=== PATIENT | female | born 1995 | race African-American/Black ===

== ENCOUNTER 2019-09-15 14:20 | Emergency (ER) | payer MEDICAID ==
[~2019-09-15] VITALS: Ht 170.2 cm; Wt 77.1 kg
[2019-09-15 14:23] VITALS: BP 122/80
--- NOTE | 2019-09-15 14:23 | NUR ---
ED Nurse Note: PT brought in by ra Whitaker from a [employer] [facility] for ALOC. per EMS reports, pt was sleeping in the waiting room and was unable to wake her up. PT currently appears to be lethargic. arrousable to light pain.
--- NOTE | 2019-09-15 14:27 | Emergency Room Report ---
History of Present Illness General Chief Complaint: Altered Level of Consciousness Source: Patient, EMS Present Illness HPI Patient is transported from [employer] with altered level of consciousness. Paramedics found the patient with eyes closed and minimally responding to verbal stimuli however she did respond to sternal rub. She would not answer questions. Accu-Chek in the field was normal. There is no evidence of any head trauma. Here in the emergency department the patient has a gag reflex. In addition she will not answer questions. When asked if she has a headache she minimally nods yes. 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 Nursing Documentation: PMH: Agreed; PSxH: Agreed Nursing Documentation-PMH Past Medical History: No Stated History Review of Systems All Other Systems: limited Physical Exam Vital Signs Date Time Temp Pulse Resp B/P (MAP) Pulse Ox O2 Delivery O2 Flow Rate FiO2 09/15/19 14:15 73 18 112/75 (87) 98 Sp02 EP Interpretation: reviewed, normal General Appearance: non-toxic, lethargic Eyes: bilateral eye PERRL, bilateral eye abnormal EOM - Possible rotatory nystagmus, bilateral eye Scleral Injection ENT: moist mucus membranes - Gag present Neck: other - Will spontaneously when gag tested no apparent bony tenderness Respiratory: normal inspection, chest non-tender Cardiovascular #1: regular rate, rhythm, no edema Cardiovascular #2: 2+ radial (L) Gastrointestinal: non tender, abnormal bowel sounds - Decreased, overweight Musculoskeletal: moves extm spontaneously Neurologic: other - Lethargic, gag present, moves all extremities when gag is tested, reflexes symmetrical but depressed Psychiatric: other - Lethargy Skin: no rash, warm/dry Procedures Critical Care Time Critical Care Time Total Critical Care Time: 30 min bedside evaluation and treatment excludes procedures (EKG). Reason for critical care: Stupor unknown etiology, repeated evaluations Possible complications: hypotension, hypertension, AL, shock, arrhythmias, metabolic acidosis, end organ damage, respiratory failure. Interventions: Assessment of airway, critical evaluation with repeat evaluations and monitoring. Course: Patient presented with stupor. Airway assessed to be stable. Evaluation with CT, chest x-ray and labs. Repeat evaluations. Patient improved with observation. Consultations: nursing staff, EMS Performed by: Dr. Estevez Tolerated well condition = initially critical but improved and able to be discharged. Medical Decision Making Diagnostic Impression: Primary Impression: Altered level of consciousness Additional Impression: Amphetamine abuse ER Course Patient presents with altered level of consciousness. Differential includes drug ingestion including PCP and GHB, electrolyte abnormality, brain bleed was others. Patient evaluated with EKG, chest x-ray CT of the head and labs. Patient will receive IV hydration. Patient placed on a it admin. She is protecting her airway at this time. EKG normal sinus rhythm with normal EKG. labs significant for positive amphetamine 1800. Patient arousable and answers questions still slightly ataxic at the moment. Denies any other drug ingestion. She is complaining about some rib pain but when asked what happened she will not answer. She does not describe the pain either. Patient fully awake and ambulatory. Insists on leaving the department. Discussed findings and the need for outpatient follow-up. No medical emergency at this time and patient stable for outpatient observation and treatment. Laboratory Tests Test 09/15/19 14:15 09/15/19 14:45 09/15/19 15:11 White Blood Count 9.0 K/UL (4.8-10.8) Red Blood Count 4.87 M/UL (4.20-5.40) Hemoglobin 14.0 G/DL (12.0-16.0) Hematocrit 43.5 % (37.0-47.0) Mean Corpuscular Volume 89 FL (80-99) Mean Corpuscular Hemoglobin 28.8 PG (27.0-31.0) Mean Corpuscular Hemoglobin Concent 32.2 G/DL (32.0-36.0) Red Cell Distribution Width 12.2 % (11.6-14.8) Platelet Count 302 K/UL (150-450) Mean Platelet Volume 7.3 FL (6.5-10.1) Neutrophils (%) (Auto) 57.9 % (45.0-75.0) Lymphocytes (%) (Auto) 28.8 % (20.0-45.0) Monocytes (%) (Auto) 10.4 % (1.0-10.0) H Eosinophils (%) (Auto) 0.8 % (0.0-3.0) Basophils (%) (Auto) 2.1 % (0.0-2.0) H Troponin I 0.000 ng/mL (0.000-0.056) Human Chorionic Gonadotropin, Qual Negative (NEGATIVE) Urine Color Pale yellow Urine Appearance Clear Urine pH 5 (4.5-8.0) Urine Specific [place] 1.020 (1.005-1.035) Urine Protein Negative (NEGATIVE) Urine Glucose (UA) Negative (NEGATIVE) Urine Ketones Negative (NEGATIVE) Urine Blood 1+ (NEGATIVE) H Urine Nitrite Negative (NEGATIVE) Urine Bilirubin Negative (NEGATIVE) Urine Urobilinogen Normal MG/DL (0.0-1.0) Urine Leukocyte Esterase Negative (NEGATIVE) Urine RBC 0-2 /HPF (0 - 2) Urine WBC 0 /HPF (0 - 2) Urine Squamous Epithelial Cells Occasional /LPF Urine Bacteria None /HPF (NONE) Urine Opiates Screen Negative (NEGATIVE) Urine Barbiturates Screen Negative (NEGATIVE) Phencyclidine (PCP) Screen Negative (NEGATIVE) Urine Amphetamines Screen Positive (NEGATIVE) H Urine Benzodiazepines Screen Negative (NEGATIVE) Urine Cocaine Screen Negative (NEGATIVE) Urine Marijuana (THC) Screen Negative (NEGATIVE) Sodium Level 137 MMOL/L (136-145) Potassium Level 3.8 MMOL/L (3.5-5.1) Chloride Level 104 MMOL/L (98-107) Carbon Dioxide Level 24 MMOL/L (21-32) Anion Gap 9 mmol/L (5-15) Blood Urea Nitrogen 9 mg/dL (7-18) Creatinine 1.0 MG/DL (0.55-1.30) Estimated Glomerular Filtration Rate > 60 mL/min (>60) Glucose Level 94 MG/DL (74-106) Calcium Level 8.1 MG/DL (8.5-10.1) L Total Bilirubin 0.4 MG/DL (0.2-1.0) Aspartate Amino Transferase (AST) 21 U/L (15-37) Alanine Aminotransferase (ALT) 15 U/L (12-78) Alkaline Phosphatase 56 U/L (46-116) Total Creatine Kinase 143 U/L (26-308) Total Protein 6.8 G/DL (6.4-8.2) Albumin 3.4 G/DL (3.4-5.0) Globulin 3.4 g/dL Albumin/Globulin Ratio 1.0 (1.0-2.7) Thyroid Stimulating Hormone (TSH) 3.021 uiU/mL (0.358-3.740) Salicylates Level 0.8 ug/mL (2.8-20) L Acetaminophen Level < 2 MCG/ML (10-30) L Serum Alcohol < 3 mg/dL EKG Diagnostic Results Rate: normal Rhythm: NSR ST Segments: no acute changes Rhythm Strip Diag. Results EP Interpretation: yes Rhythm: NSR, no PVC's, no ectopy Chest X-Ray Diagnostic Results Chest X-Ray Diagnostic Results : Chest X-Ray Ordered: Yes # of Views/Limited/Complete: 1 View Indication: Other EP Interpretation: Yes Interpretation: no consolidation, no effusion, no pneumothorax Impression: No acute disease Electronically Signed by: Electronically signed by Maynor Estevez MD CT/MRI/US Diagnostic Results CT/MRI/US Diagnostic Results : Imaging Test Ordered: Had Impression No bleeds or edema. vascular calcifications falx Last Vital Signs Date Time Temp Pulse Resp B/P (MAP) Pulse Ox O2 Delivery O2 Flow Rate FiO2 09/15/19 18:28 97.8 80 17 120/80 98 Room Air Status: improved Disposition: HOME, SELF-CARE Condition: Improved Maynor Estevez MD Sep 15, 2019 14:27
--- NOTE | 2019-09-15 14:34 | NUR ---
ED Nurse Note: Collected blood sample and sent to lab.
[2019-09-15 14:36] LABS: BASOPHILS % (AUTO) 2.1 % (0.0-2.0); EOSINOPHILS % (AUTO) 0.8 % (0.0-3.0); HEMATOCRIT 43.5 % (37.0-47.0); LYMPHOCYTES % (AUTO) 28.8 % (20.0-45.0); MEAN CORPUSCULAR VOLUME 89 FL (80-99); MONOCYTES % (AUTO) 10.4 % (1.0-10.0); NEUTROPHILS % (AUTO) 57.9 % (45.0-75.0); PLATELET COUNT 302 K/UL (150-450); RED BLOOD COUNT 4.87 M/UL (4.20-5.40); RED CELL DISTRIBUTION WIDTH 12.2 % (11.6-14.8)
--- NOTE | 2019-09-15 14:38 | NUR ---
ED Nurse Note: pt taken to CT accompanied by surjit via [facility].
--- NOTE | 2019-09-15 14:51 | NUR ---
ED Nurse Note: back form ct
--- NOTE | 2019-09-15 14:56 | NUR ---
ED Nurse Note: urine sample collected.
--- NOTE | 2019-09-15 15:12 | NUR ---
ED Nurse Note: pt seen in bed, still sleeping. arousable to touch and verbal stimuli. still sppears lethargic,
[2019-09-15 15:13] VITALS: BP 113/73
[2019-09-15 15:14] LABS: APPEARANCE,URINE CLEAR; BILIRUBIN, URINE NEGATIVE (NEGATIVE); COLOR,URINE PALE YELLOW; GLUCOSE, URINE (UA) NEGATIVE (NEGATIVE); KETONES,URINE NEGATIVE (NEGATIVE); LEUKOCYTE ESTERASE ,URINE NEGATIVE (NEGATIVE); NITRITE,URINE NEGATIVE (NEGATIVE); PH,URINE 5 (4.5-8.0); PROTEIN,URINE NEGATIVE (NEGATIVE); UROBILINOGEN,URINE NORMAL MG/DL (0.0-1.0)
--- NOTE | 2019-09-15 15:19 | Diagnostic Imaging Report ---
EXAM: CT CT Head no Contrast INDICATION: Reason For Exam: ALOC. TECHNIQUE: Axial images of the brain were obtained with subsequent sagittal and coronal reformats. All CT scans at this facility are performed using dose modulation techniques as appropriate to a performed exam including the following: automated exposure control with adjustment of the mA and/or kV according to patient size. COMPARISON STUDY: None. RADIATION DOSE: CTDIvol: 53.4 mGy DLP: 1098.9 mGy-cm Dose information generated by the CT scanner is available in PACS. FINDINGS: There is normal symmetry and normal hanna-white differentiation. There is no acute large territory cortical infarct, hemorrhage, mass effect or shift. Ventricles and cisterns as well as brainstem and posterior fossa appear unremarkable. The sellar region is normal. Sinuses, mastoid air cells and bony calvarium appear intact. IMPRESSION: NO ACUTE INTRACRANIAL ABNORMALITY.
[2019-09-15 15:46] LABS: ALANINE AMINOTRANSFERASE 15 U/L (12-78); ALBUMIN 3.4 G/DL (3.4-5.0); ALKALINE PHOSPHATASE 56 U/L (46-116); ANION GAP 9 mmol/L (5-15); ASPARTATE AMINO TRANSFERASE 21 U/L (15-37); BILIRUBIN,TOTAL 0.4 MG/DL (0.2-1.0); BLOOD UREA NITROGEN 9 mg/dL (7-18); CALCIUM 8.1 MG/DL (8.5-10.1); CARBON DIOXIDE 24 MMOL/L (21-32); CHLORIDE 104 MMOL/L (98-107); CREATINE KINASE 143 U/L (26-308); POTASSIUM 3.8 MMOL/L (3.5-5.1); SODIUM 137 MMOL/L (136-145)
[2019-09-15 17:13] VITALS: BP 118/76
--- NOTE | 2019-09-15 17:13 | NUR ---
ED Nurse Note: pt seen in bed resting with eyes closed. no acute distress is noted at this time. VSS as documented.
--- NOTE | 2019-09-15 18:01 | Diagnostic Imaging Report ---
Indication: Reason For Exam: ALOC Technique: Single AP view of the chest. Comparison: None. Findings: The cardiomediastinal silhouette is within normal limits. There is no focal consolidation, pneumothorax or pleural effusion. Osseous structures demonstrate no acute abnormality. IMPRESSION: No airspace consolidation, pneumothorax or pleural effusion.
[2019-09-15 18:28] VITALS: BP 120/80
--- NOTE | 2019-09-15 18:28 | NUR ---
ER DISCHARGE NOTE: patient woke up, and patient is cleared to be discharged per ERMD, pt is aox4, on room air, with stable vital signs. pt was given dc and prescription instructions, pt was able to verbalize understanding, pt id band and iv site removed without complications. pt is able to ambulate with steady gait. pt took all belongings.
--- NOTE | 2019-09-15 18:28 | NUR ---
Note sandra in EDM - 09/15/19 at 1836 by TARIK ED Nurse Note: pt woke up and decided to leave AMA. AMA form was signed. IV line taken out. id band taken out. pt left and took all his belongings.
== END 2019-09-15 18:28 | disposition home or self-care (01) ==
LOC: EDBD 14:20 → EMR 14:39
DX: F15.10 Other stimulant abuse, uncomplicated (principal); R41.82 Altered mental status, unspecified; R51 Headache
CPT/HCPCS: 36415; 70450; 71045; 80053; 80307; 81003; 82550; 84443; 84484; 84703; 85025; 93005; 96360; 96361; G0480; G0481; Z7502; 99284